=== PATIENT | male | born 2005 | race Caucasian/White ===

== ENCOUNTER 2025-03-16 12:09 | Emergency (ER) | payer BC, SELFPAY ==
[2025-03-16 12:18] VITALS: BP 140/82; PULSE 53; TEMP 36.8; O2SAT 98; BMI 23.1
--- NOTE | 2025-03-16 12:43 | ED.GENADUL1 ---
HPI HPI - General Adult General Chief complaint: Nausea/Vomiting/Diarrhea Stated complaint: VOMITING, NAUSEA, WEAKNESS Time Seen by Provider: 03/16/25 12:15 Source: patient Mode of arrival: walk-in Limitations: no limitations History of Present Illness HPI narrative: The patient is a 20-year-old male who presents to the emergency department today for evaluation of concerns for nausea and vomiting. He endorses since early this morning he has had multiple episodes of emesis. He states he was drinking last night and does endorse using marijuana products. He states he does have history of cannabinoid induced hyperemesis but reports his symptoms do not feel are similar to that as his symptoms were not alleviated by taking any warm showers. He states he does not feel hung over either . He denies any abdominal pain or diarrhea. No fever/chills, cough/cold symptoms, chest pain, shortness of breath, urinary symptoms, or back/flank pain. Related Data Previous Rx's ?Medication ?Instructions ?Recorded ondansetron 4 mg disintegrating 4 mg PO Q8H PRN nausea and 03/16/25 tablet vomiting 4 days #10 tabs Allergies Allergy/AdvReac Type Severity Reaction Status Date / Time No Known Drug Allergies Allergy Verified 03/16/25 12:18 Opioid HPI Opioid Management Most Recent Opioid Data: Last Pain Scale 7 Today, 12:18 Ur Phencyclidine Scrn, (NEGATIVE) Negative Today, 14:07 Review of Systems ROS Status of ROS 10 or more systems reviewed and unremarkable except as noted in history and below PFSH PFSH Social History Little interest or pleasure in doing things: not at all Feeling down, depressed, or hopeless: not at all Exam Narrative Exam Narrative: Constituational: Awake/ alert, no apparent distress, well hydrated HENMT: normocephalic, external ears normal, moist oral mucous membranes and oropharynx normal Eyes: EOMI and conjunctivae normal Neck: ROM intact Chest: inspection of chest normal Respiratory: Normal respiratory effort, clear to auscultation bilaterally Cardio: regular rate and regular rhythm GI: soft to palpation and non-tender Back: nontender MSK: ROM intact, +NVI Skin: no rashes or petechiae Neuro: no focal deficits Psych: mental status grossly normal Constitutional Vital Signs, click to edit/add: Last Vital Signs Temp 98.2 F 03/16/25 12:18 Pulse 53 L 03/16/25 12:18 Resp 16 03/16/25 12:18 BP 140/82 03/16/25 12:18 Pulse Ox 98 03/16/25 12:18 O2 Del Method Room Air 03/16/25 12:18 Course Vital Signs Vital signs: Vital Signs Temperature 98.2 F 03/16/25 12:18 Pulse Rate 53 L 03/16/25 12:18 Respiratory Rate 16 03/16/25 12:18 Blood Pressure 140/82 03/16/25 12:18 Pulse Oximetry 98 03/16/25 12:18 Oxygen Delivery Method Room Air 03/16/25 12:18 Temperature 98.2 F 03/16/25 12:18 Pulse Rate 53 L 03/16/25 12:18 Respiratory Rate 16 03/16/25 12:18 Blood Pressure 140/82 03/16/25 12:18 Pulse Oximetry 98 03/16/25 12:18 Oxygen Delivery Method Room Air 03/16/25 12:18 Medical Decision Making MDM Narrative Medical decision making narrative: The patient is a nontoxic well-appearing 20-year-old male who presented to the emergency department today for evaluation concerns for nausea and vomiting after he reportedly drinking last night and using marijuana product. Initial examination unremarkable. Historically he had endorsed multiple and frequent episodes of nausea with subsequent emesis after attempting any oral intake despite taking Zofran earlier this morning. No acute abdominal findings on exam. Vital signs are stable. Well-hydrated. Patient received supportive measures of IV fluids despite this per his request with Zofran. On reevaluation he is tolerating oral intake with no subsequent nausea or vomiting. Labs leukocytosis WBCs 14 otherwise no significant anemia or thrombocytopenia. Electrolytes including renal and hepatic function stable. Normal lipase. UA is negative for UTI. Urine drug screen is positive for cannabinoids. Patient was reevaluated multiple times while in the emergency department due to overall reporting improvement in condition with the above supportive measures. Clinical impression nausea and vomiting possibly 2/2 reported alcohol consumption last night vs cannabinoid induced hyperemesis vs viral illness. With the patient including recommendations for supportive care. Will discharge home with Zofran. Advised on follow-up with patient's primary care provider for reevaluation. Patient counseled for 5 minutes on marijuana use and alcohol use cessation. Discussed signs and symptoms of any worsening condition and when to consider reevaluation by the emergency department. Patient verbalized an understanding of this and is agreeable to plan to be discharged home. Medical Records Medical records reviewed: Yes I reviewed the patient's medical records Lab Data Lab results reviewed: Yes I reviewed the patient's lab results Labs: Lab Results 03/16/25 03/16/25 Range/Units 12:40 14:07 WBC 14.3 H (4.0-11.0) 10^3/uL RBC 4.72 (4.70-6.10) 10^6/uL Hgb 15.6 (14.0-18.0) g/dL Hct 44.2 (42.0-54.0) % MCV 93.6 (80.0-94.0) fL MCH 33.1 (25.9-34.0) pg MCHC 35.3 H (29.9-35.2) g/dL RDW 12.3 (11.0-15.0) % Plt Count 274 (150-450) 10^3/uL MPV 9.4 L (9.5-13.5) fL Neut % (Auto) 88.3 H (43.0-75.0) % Lymph % (Auto) 7.2 L (20.5-60.0) % [place] % (Auto) 4.1 (1.7-12.0) % Eos % (Auto) 0.0 L (0.9-7.0) % Baso % (Auto) 0.1 L (0.2-2.0) % Neut # (Auto) 12.6 H (1.4-6.5) 10^3/uL Lymph # (Auto) 1.0 L (1.2-3.8) 10^3/uL [place] # (Auto) 0.6 (0.3-0.8) 10^3/uL Eos # (Auto) 0.0 (0.0-0.7) 10^3/uL Baso # (Auto) 0.0 (0.0-0.1) 10^3/uL Abs Immat Gran (auto) 0.04 H (0.00-0.03) 10^3/uL Imm/Tot Granulo (auto) 0.3 (0.0-0.5) % Sodium 145 (136-145) mmol/L Potassium 4.3 (3.5-5.1) mmol/L Chloride 104 (98-107) mmol/L Carbon Dioxide 27.2 (21.0-32.0) mmol/L Anion Gap 18.1 BUN 20.0 H (7.0-18.0) mg/dL Creatinine 1.25 (0.70-1.30) mg/dL Est GFR ( Amer) >60 (>=60 mL/min/1.73m^2) Est GFR (Non-Af Amer) >60 (>=60 mL/min/1.73m^2) BUN/Creatinine Ratio 16.0 Glucose 107 H (74-106) mg/dL Calcium 10.1 (8.5-10.1) mg/dL Total Bilirubin 0.7 (0.2-1.0) mg/dL AST 40 H (15-37) U/L ALT 52 (16-63) U/L Alkaline Phosphatase 113 (46-116) U/L Total Protein 8.1 (6.4-8.2) g/dL Albumin 4.7 (3.4-5.0) g/dL Globulin 3.4 g/dL Albumin/Globulin Ratio 1.4 Lipase 18.0 (16.0-77.0) U/L Urine Color Yellow (YELLOW) Urine Clarity Clear (CLEAR) Urine pH 7.5 (5.0-9.0) Ur Specific [place] 1.015 (1.005-1.025) Urine Protein 30 A (NEG/TRACE) mg/dL Urine Glucose (UA) Negative (NEGATIVE) mg/dL Urine Ketones >=80 A (NEGATIVE) mg/dL Urine Occult Blood Negative (NEGATIVE) Urine Nitrite Negative (NEGATIVE) Urine Bilirubin Negative (NEGATIVE) Urine Urobilinogen 1.0 (0.2-1.0) EU/dL Ur Leukocyte Esterase Negative (NEGATIVE) Urine RBC None seen (0-2) #/HPF Urine WBC None seen (NONE SEEN) #/HPF Ur Squamous Epith Cells None seen (NONE/RARE) #/LPF Urine Crystals None seen (None Seen) #/HPF Urine Bacteria None seen (NONE SEEN) #/HPF Urine Casts None seen (NONE SEEN) #/LPF Urine Mucus Trace A (NONE SEEN) Urine Opiates Screen Negative (NEGATIVE) Ur Buprenorphine Scrn Negative (NEGATIVE) Ur Oxycodone Screen Negative (NEGATIVE) Urine Methadone Screen Negative (NEGATIVE) Ur Barbiturates Screen Negative (NEGATIVE) U Tricyclic Antidepress Negative (NEGATIVE) Ur Phencyclidine Scrn Negative (NEGATIVE) Ur Amphetamines Screen Negative (NEGATIVE) U Methamphetamines Scrn Negative (NEGATIVE) U Benzodiazepines Scrn Negative (NEGATIVE) Urine Cocaine Screen Negative (NEGATIVE) U Cannabinoids Screen Positive A (NEGATIVE) Discharge Plan Discharge Chief Complaint: Nausea/Vomiting/Diarrhea Clinical Impression: Nausea & vomiting Patient Disposition: Home, Self-Care Prescriptions / Home Meds: New ondansetron 4 mg tablet,disintegrating 4 mg PO Q8H PRN (Reason: nausea and vomiting) 4 Days Qty: 10 0RF Print Language: Frisian Instructions: Acute Nausea and Vomiting (DC) Additional Instructions: May take Zofran as needed for any nausea or vomiting. Stay hydrated and drink plenty of fluids. Recommend following a bland diet and advance this as tolerated. Follow-up with your primary care provider for reevaluation as discussed. Avoid any use of marijuana or alcohol as this may be contributing to your symptoms today. May return to the ER with any new or worsening symptoms/concerns.
[2025-03-16] MEDS: ONDANSETRON PF 4 MG/2 ML VIAL IV (12:49)
[2025-03-16] MEDS: 0.9 % SODIUM CHLORIDE 1,000 ML 1000 ML IV ×2 (12:49→13:41)
--- OUTSIDE RECORDS SUMMARY | 2025-03-16 12:50 | XMS_ITS | Clinical Summary ---
Author Organization [facility] Address [address] [place] [address] Care Team Providers Care Knobber Name Role Phone Dashawn Grijalva Primary Care Provider [phone] Allergies No known active allergies Medications ketoconazole (NIZOral) 2 % shampooIndicati ons:Tinea versicolor Lather on back and shoulders daily until clear and then 1-2 times a week for maintenance, leave on 5 min before rinsing Do not start before July 12, 2024. 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 Gained weight which is great since he has unintentional weight loss recently. Will hold off on GI eval for now. Moderate episode of recurrent major depressive d isorder 02/23/2023 Assessment & Plan (03/09/2023 5:34 PM EDT): Great response to mirtazipine, unintentional weight loss has also resolved. Notes he is 85-90% improved with MDD/PHILOMENA. He is very please. Other chronic pain 02/23/2023 Shoulder pain 02/23/2023 Encounters Date Type Department Care Team Description 02/20/2025 Telephone [facility] [address] [place] [address] Yamini Zavaleta MA from Last 3 Months Family History Medical History Relation Name Comments No Known Problems Brother Heart disease Father Hypertension Father Polycystic kidney disease Father Cancer Maternal Grandfather Heart disease Paternal Grandfather Hypertension Paternal Grandfather No Known Problems Sister Relation Name Status Comments Brother Alive Father Alive Maternal Grandfather Mother Alive Paternal Grandfather Sister Alive Social History Tobacco Use Types Packs/Day Years Used Date Smoking Tobacco: Every Day Cigarettes Passive Smoke Exposure: Past Smokeless Tobacco: Never Tobacco Cessation:Counseling Given: Yes Alcohol Use Standard Drinks/Week Comments Not Currently 0 (1 standard drink = 0.6 oz pur e alcohol) PHQ-2 Answer Date Recorded Patient Health Questionnaire-2 Score 0 03/09/2023 Sex and Gender Information Value Date Recorded Sex Assigned at Not on file Legal Sex Male 7:13 PM EDT Gender Identity Not on file Sexual Orientation Not on file Last Filed Vital Signs Vital Sign Reading Time Taken Comments Blood Pressure 128/78 03/09/2023 4:06 PM EDT Pulse 78 03/09/2023 4:06 PM EDT Temperature 36.7 C (98 F) 03/09/2023 4:06 PM EDT Respiratory Rate 18 03/09/2023 4:06 PM EDT Oxygen Saturation 98% 03/09/2023 4:06 PM EDT Inhaled Oxygen Concentration - - Weight 77.1 kg (170 lb) 03/09/2023 4:06 PM EDT Height 185.4 cm (6' 1 ) 03/09/2023 4:06 PM EDT Body Mass Index 22.43 03/09/2023 4:06 PM EDT Plan of Treatment Health Maintenance Due Date Last Done Comments Influenza Vaccine (Season Ended) 2025 Insurance BCBS Care Teams Knobber Relationship Specialty Start Date End Date Dashawn Grijalva DO PCP - General Family Medicine 03/09/23
--- OUTSIDE RECORDS SUMMARY | 2025-03-16 12:50 | XMS_ITS | Patient Health Record ---
Author Organization [facility] Address [address] [place] [address] Support Name Relationship Address Phone JONATHON NAVARRO Emergency Contact [address] [place] [address] JONATHON NAVARRO Guarantor Unknown [phone] Reason For Referral No Information Social History Tobacco Use: Social History Observation Description Date Details (start date - stop date) Unknown Tobacco Screen: Question Answer Notes Are you a: Uses tobacco in other forms Alcohol Screening: Question Answer Notes Did you have a drink contain ing alcohol in the past year? Yes How often did you have a dri nk containing alcohol in the past year? Monthly or less (1 point) Points 1 Interpretation Negative Depression Screening (PHQ-9): Question Answer Notes Little interest or pleasure in doing things Tigist ral days Feeling down, depressed, or hopeless Several day s Trouble falling or staying asleep, or sleeping t oo much More than half the days Feeling tired or having little energy Not at all Poor appetite or overeating Not at all Feeling bad about yourself-o r that you are a failure or have let yourself or your family down Not at all Trouble concentrating on thi ngs, such as reading the newspaper or watching television Not at all Moving or speaking so slowly that other people could have noticed. Or the opposite being so fidgety or restless that you have been moving around a lot more than usual Not at all Thoughts that you would be b todd off , or of hurting yourself in some way Not at all Total Score 4 Intepretation Minimal Depression Section Notes: Vapes on and off Problems Problem Type SNOMED Code ICD Code Onset Dates Problem Status W/U Status Risk Notes Problem Depression (792304861) Depression (F32.9) Active confirmed Problem 90895078 Situational anxiety (F41.8) Active confirmed Plan Of Treatment No Information Insurance Providers Payer Name Payer Address Payer Phone Subscriber Number Group Number Insured Name Patient Relationship to Insured Coverage Start Date Coverage End Date ANTHEM Primary [address] [place] [address] [phone] [id number] KENNETH NAVARRO Parent 2
--- OUTSIDE RECORDS SUMMARY | 2025-03-16 12:50 | XMS_ITS | Encounter Summary ---
Author Organization [facility] Address [address] [place] [address] Care Team Providers Care Clinical Pharmacy Coordinator Name Role Phone Rudi Dashawn Jones DO Primary Care Provider [phone] Dashawn Grijalva DO Unavailable [phone] Encounter Details Date Type Department Care Team (Late st Contact Info) Description 06/04/[address] [facility] [address] [place] [address] Mago Pisano, [facility] [address] [facility] [address] [place] [address] Social History Tobacco Use Types Packs/Day Years Used Date Smoking Tobacco: Every Day Cigarettes Passive Smoke Exposure: Past Smokeless Tobacco: Never Alcohol Use Standard Drinks/Week Comments Not Currently 0 (1 standard drink = 0.6 oz pur e alcohol) PHQ-2 Answer Date Recorded Patient Health Questionnaire-2 Score 0 03/09/2023 Sex and Gender Information Value Date Recorded Sex Assigned at Not on file Legal Sex Male 7:13 PM EDT Gender Identity Not on file Sexual Orientation Not on file documented as of this encounter Plan of Treatment Not on file documented as of this encounter Visit Diagnoses Not on filedocumented in this encounter Care Teams Clinical Pharmacy Coordinator Relationship Specialty Start Date End Date Dashawn Grijalva DO PCP - General Family Medicine 03/09/23 Dashawn Grijalva DO [address] [facility] [address] [place] [address] PCP - [employer] 05/10/23 documented as of this encounter
[2025-03-16 12:52] LABS: Basophils Percent Auto 0.1 % (0.2-2.0); Hematocrit 44.2 % (42.0-54.0); Hemoglobin 15.6 g/dL (14.0-18.0); Immature Granulocytes Abs Auto 0.04 10^3/uL (0.00-0.03); Immature Granulocytes Pct Auto 0.3 % (0.0-0.5); Lymphocytes Percent Auto 7.2 % (20.5-60.0); Mean Corpuscular HGB Conc 35.3 g/dL (29.9-35.2); Mean Corpuscular Hemoglobin 33.1 pg (25.9-34.0); Mean Corpuscular Volume 93.6 fL (80.0-94.0); Mean Platelet Volume 9.4 fL (9.5-13.5); Monocytes Absolute Auto 0.6 10^3/uL (0.3-0.8); Monocytes Percent Auto 4.1 % (1.7-12.0); Neutrophils Absolute Auto 12.6 10^3/uL (1.4-6.5); Neutrophils Percent Auto 88.3 % (43.0-75.0); Platelet Count 274 10^3/uL (150-450); Red Blood Count 4.72 10^6/uL (4.70-6.10); Red Cell Distribution Width 12.3 % (11.0-15.0); White Blood Count 14.3 10^3/uL (4.0-11.0)
[2025-03-16 13:11] LABS: Alanine Aminotransferase 52 U/L (16-63); Albumin Globulin Ratio 1.4; Albumin Level 4.7 g/dL (3.4-5.0); Alkaline Phosphatase 113 U/L (46-116); Anion Gap 18.1; Aspartate Amino Transferase 40 U/L (15-37); Bilirubin Total 0.7 mg/dL (0.2-1.0); Calcium 10.1 mg/dL (8.5-10.1); Carbon Dioxide 27.2 mmol/L (21.0-32.0); Chloride 104 mmol/L (98-107); Estimated GFR (African America >60 (>=60 mL/min/1.73m^2); Estimated GFR (Non-African Ame >60 (>=60 mL/min/1.73m^2); Globulin 3.4 g/dL; Glucose 107 mg/dL (74-106); Potassium 4.3 mmol/L (3.5-5.1); Sodium 145 mmol/L (136-145); Total Protein 8.1 g/dL (6.4-8.2)
[2025-03-16 14:13] LABS: Bilirubin Urine NEGATIVE (NEGATIVE); Blood Urine NEGATIVE (NEGATIVE); Clarity Urine CLEAR (CLEAR); Color Urine YELLOW (YELLOW); Glucose Urine UA NEGATIVE (NEGATIVE); Ketones Urine >=80 mg/dL (NEGATIVE); Leukocyte Esterase Urine NEGATIVE (NEGATIVE); Nitrite Urine NEGATIVE (NEGATIVE); Protein Urine 30 mg/dL (NEG/TRACE); Specific Gravity Urine 1.015 (1.005-1.025); pH Urine 7.5 (5.0-9.0)
[2025-03-16 14:15] LABS: Urine Microscopic Indicated YES
[2025-03-16 14:23] LABS: Bacteria Urine NONE SEEN #/HPF (NONE SEEN); Cast Seen? NONE SEEN #/LPF (NONE SEEN); Crystals Seen? None Seen #/HPF (None Seen); Mucus Urine TRACE (NONE SEEN); RBC Urine NONE SEEN #/HPF (0-2); Squamous Epithelial Cell Urine NONE SEEN #/LPF (NONE/RARE); WBC Urine NONE SEEN #/HPF (NONE SEEN)
[2025-03-16 14:24] LABS: Amphetamine Screen Urine NEGATIVE (NEGATIVE); Barbiturates Screen Urine NEGATIVE (NEGATIVE); Benzodiazepines Screen Urine NEGATIVE (NEGATIVE); Buprenorphine Screen Urine NEGATIVE (NEGATIVE); Cannabinoid Screen Urine POSITIVE (NEGATIVE); Cocaine Screen Urine NEGATIVE (NEGATIVE); Methadone Screen Urine NEGATIVE (NEGATIVE); Methamphetamines Screen Urine NEGATIVE (NEGATIVE); Opiate Screen Urine NEGATIVE (NEGATIVE); Oxycodone Screen Urine NEGATIVE (NEGATIVE); Phencyclidine Screen Urine NEGATIVE (NEGATIVE); Tricyclic Antidepressant Urine NEGATIVE (NEGATIVE)
[2025-03-16 14:44] VITALS: BP 122/78; PULSE 88; TEMP 36.8; O2SAT 99
== END 2025-03-16 14:45 | disposition home or self-care (01) ==
PROVIDERS: Nurse Practitioner; Emergency Provider Emergency Medicine
DX: R11.2 Nausea with vomiting, unspecified (principal)
CPT/HCPCS: 36415; 80053; 80307; 81001; 83690; 85025; 96361; 96374; 99285; J2405

== ENCOUNTER 2025-05-15 17:28 | Emergency (ER) | payer BC, SELFPAY ==
[2025-05-15 17:33] VITALS: BP 145/88; PULSE 69; TEMP 36.6; O2SAT 99; BMI 23.1
--- NOTE | 2025-05-15 17:44 | ED_ITS ---
HPI - Wound/Laceration General Chief Complaint: Wound/Laceration Stated Complaint: CUT LEFT HAND IN THE [place] WITH A KNIFE Time Seen by Provider: 05/15/25 17:35 Source: patient and family (brother) Mode of arrival: walk-in Limitations: no limitations History of Present Illness HPI narrative: 40-year-old male presents to the emergency department with brother with complaint of injury to his left little finger. Patient states he was walking on a trail, holding a knife and his phone, when the phone began to fall. He reached out to try and catch the phone and inadvertently cut his finger with the knife he was holding. Complains of pain, tenderness. Bleeding controlled. Unsure of last tetanus shot. Patient is right-handed. Denies any motor or sensory changes, paresthesias. Quality:?Penetrating trauma Severity:?Mild Timing:?As above, constant Context: Normal setting and activity? Modifying factors:?Pain worse with palpation Associated symptoms: as above Related Data Allergies Allergy/AdvReac Type Severity Reaction Status Date / Time No Known Drug Allergies Allergy Verified 05/15/25 17:36 Review of Systems ROS Narrative CONST: Denies diaphoresis, weakness MS: Denies arthralgias, myalgias SKIN:? +wound.? Denies swelling NEURO: Denies weakness, numbness, paresthesias PFSH PFSH Social History Little interest or pleasure in doing things: not at all Feeling down, depressed, or hopeless: not at all Exam Narrative Exam Narrative: Vital signs noted Nurses notes reviewed CONST: Nontoxic, well appearing, well nourished, in no distress.? No diaphoresis.?? HENT: normocephalic, atraumatic, CV: 2+ palpable left radial pulse MS: left little finger: patient has a V shaped ? No tenderness to the itzel holly of the finger.? No swelling, ecchymosis, discoloration, crepitus, deformity, instability, warmth.? ROM full flexion and extension.? Strength 5/5 NEURO: Sensory intact throughout and distal to the injury SKIN: + laceration PSYCHIATRIC: normal mood, affect Constitutional Vital Signs, click to edit/add: Last Vital Signs Temp 97.9 F 05/15/25 17:33 Pulse 75 05/15/25 18:55 Resp 18 05/15/25 18:55 BP 132/87 05/15/25 18:55 Pulse Ox 99 05/15/25 18:55 O2 Del Method Room Air 05/15/25 18:55 Course Vital Signs Vital signs: Vital Signs Temperature 97.9 F 05/15/25 17:33 Pulse Rate 69 05/15/25 17:33 Respiratory Rate 18 05/15/25 17:33 Blood Pressure 145/88 H 05/15/25 17:33 Pulse Oximetry 99 05/15/25 17:33 Oxygen Delivery Method Room Air 05/15/25 17:33 Temperature 97.9 F 05/15/25 17:33 Pulse Rate 75 05/15/25 18:55 Respiratory Rate 18 05/15/25 18:55 Blood Pressure 132/87 05/15/25 18:55 Pulse Oximetry 99 05/15/25 18:55 Oxygen Delivery Method Room Air 05/15/25 18:55 MDM - Wound/Laceration MDM Narrative Medical decision making narrative: This is a pleasant 20-year-old male who presents to the emergency department for evaluation of laceration to his left little finger On arrival, afebrile, vital signs stable. On exam, nontoxic, well appearing patient, in no apparent distress. He has speciate, roughly 2.5 cm laceration to the distal left little finger favoring ulnar side of the digit to the palmar aspect. There is some associated tenderness. Bleeding controlled. Range of motion full with flexion extension. Strength, neurovascularly intact. Left little finger x-ray imaging, per radiologist reveals no acute findings Wound repaired as noted in procedure note above without complication Favor laceration FB/deep structure involvement less likely based on exam and imaging History and Record Review Discussion with independent historian:brother Management Independent interpretation: Left little finger: No fracture, dislocation, foreign body noted. Re-Evaluation: Patient pain improved, wound repaired after treatment. Disposition ? The patient was discharged. Wound care instructions given both verbally and on discharge paperwork Patient advised Ibuprofen/Tylenol as needed for pain Plan: Patient will be discharged to home.? Condition at time of disposition: stable, improved.? Advised to follow up with referral provider, name and number placed on discharge paperwork. Advised to return for any worsening and/or development of new, concerning signs or symptoms PLEASE NOTE: Portions of the medical record may have been produced using electronic securities vault supervisor and may contain errors with respect to translation of words which may not have been identified prior to finalization of the chart. Imaging Data Left little finger xr: Radiologist's impression: ITS Impressions Finger X-Ray 05/15/25 17:44 IMPRESSION: Negative acute osseous abnormality. Soft tissue injury. No radio opaque foreign body Impression dictated by: Berny Coto M.D. 05/15/2025 6:53 PM Dictation Location: [place] [address] Electronically authenticated by: [id number] Y Date: 05/15/2025 18:53 Discharge Plan Discharge Chief Complaint: Wound/Laceration Clinical Impression: Finger pain, left Laceration of left little finger Qualifiers: Encounter type: initial encounter Damage to nail status: without damage Foreign body presence: without foreign body Qualified Code(s): S61.217A - Laceration without foreign body of left little finger without damage to nail, initial encounter Patient Disposition: Home, Self-Care Time of Disposition Decision: 18:42 Condition: Good Mode of Transportation: Private Vehicle Print Language: Spanish Additional Instructions: Laceration, Sutures ? You have been treated for a laceration (cut). ? Follow up with your doctor OR come back here OR go to the nearest Emergency Department to have your sutures (stitches) taken out. Sutures should be taken out in: 7-10 days. ? Use the following wound care instructions: Keep the wound clean and dry for the next 24 hours. You can wash the wound gentl y with soap and water. DO NOT allow your wound to soak in water (don?t do the dishes or go swimming, for example). You can shower, but do not rub your stitches too hard. Let the wound dry before putting another bandage on. Take off old dressings every day. Then put on a clean, dry dressing. If the bandage sticks to the wound, slightly moisten it with water. This way, it can come off more easily. You can wash the wound gently with soap and water. To help remove a scab, cleanse the area with a mixture of half hydrogen peroxide and half water. This will also help us to take out the sutures later. Allow the area to dry completely before putting on a new bandage. Unless you receive instructions not to do so, you can place a thin layer of antibiotic ointment over the wound. You can buy Polysporin?, Bacitracin?, or Neosporin? at the store. Neosporin? can sometimes cause irritation to your skin. If this happens, stop using it and switch to another topical (surface) antibiotic. If needed, put a clean, dry bandage over the wound to protect it. ? Keep the affected area elevated (lifted) for the next 24 hours. This will decrease swelling and pain. You may also want to put ice on the area. By a pplying ice to the affected area, swelling and pain can be reduced. Place some ice cubes in a re-sealable (Ziploc?) bag and add some water. Put a thin washcloth between the bag and the skin. Apply the ice bag to the area for at least 20 minutes. Do this at least 4 times per day. It is OK to use the ice more frequently and for longer periods of time. DO NOT APPLY ICE DIRECTLY TO THE SKIN! ? If you had a local anesthetic, it will wear off in about 2 hours. Until then, be careful not to hurt yourself because of having less feeling in the area. ? YOU SHOULD SEEK MEDICAL ATTENTION IMMEDIATELY, EITHER HERE OR AT THE NEAREST EMERGENCY DEPARTMENT, IF ANY OF THE FOLLOWING OCCURS: You see redness or swelling. There are red streaks going up from the injured area. The wound smells bad or has a lot of drainage. You have fever (temperature higher than 100.4?F / 38?C), chills, worse pain and / or swelling. ? ?BE SURE TO: Call the Doctor today (or tomorrow AM) for appointment. Call us or return for any questions\problems. Return to Emergency at anytime if you are worse. Have your prescription(s) filled right now. WOUND CARE: Have your sutures removed in 7-10 days. Keep wound clean, dry, and covered. Use peroxide once a day to help remove build up. Vitamin A&D ointment or Vitamin E lotion after sutures are removed.? Massage in. Referrals: Bereket Land MD [Physician, Orthopedics] - 1 week Discharge Date/Time: 05/15/25 18:55 Procedures ED Laceration Laceration Left little finger: Site: hand (left little finger) Side (if applicable): left Size (cm): 2.5 Description: irregular (v shaped) Depth: simple, single layer (into adipose tissue only) Anesthetic used: bupivacaine (0.25) Anesthesia technique: nerve block (digital. Injection to the base of the finger, incremental, no aspiration of blood) Amount (ml): 5 Pre-repair: wound explored, irrigated extensively and deep structures intact Skin layer closed with: other (Nylon) Size (cm): 6-0 Number of sutures: 8 Technique: simple, interrupted Additional comments: Bulky, bacitracin dressing applied by nursing
--- NOTE | 2025-05-15 17:44 | XR_ITS ---
The [address] [address] Patient Name: DIONICIO NAVARRO MRN: [id number] date: 2005 Sex: M Assigned Patient Location: ED.MAIN Current Patient Location: ED.MAIN Accession/Order Number: [id number] Exam Date: 05/15/2025 18:51 Report Date: 05/15/2025 18:53 At the request of: YURI SAEZ Procedure: XR finger LT min 2V 3 views left fifth digit INDICATION: Trauma, injury COMPARISON: None FINDINGS: Soft tissue injury identified. There is mild hyperextension of the DIP joint of uncertain significance, correlate with flexion/extension motion at this level. Otherwise no definite fractures or dislocation. No radiopaque foreign body identified. XR/XR finger LT min 2V IMPRESSION: Negative acute osseous abnormality. Soft tissue injury. No radio opaque foreign body Impression dictated by: Berny Coto M.D. 05/15/2025 6:53 PM Dictation Location: [place] [address] Electronically authenticated by: [id number] Y Date: 05/15/2025 18:53
--- OUTSIDE RECORDS SUMMARY | 2025-05-15 17:52 | XMS_ITS | Encounter Summary ---
Author Organization [facility] Address [address] [place] [address] Care Team Providers Care Gasket Winder Name Role Phone Dashawn Grijalva DO Primary Care Provider Encounter Details Date Type Department Care Team (Late st Contact Info) Description 03/22/2025 Abstract [facility] [address] [place] [address] Dashawn Grijalva DO [address] [place] [address] Social History Tobacco Use Types Packs/Day Years [...] on filedocumented in this encounter Care Teams Gasket Winder Relationship Specialty Start Date End Date Dashawn Grijalva DO PCP - General Family Medicine 03/09/23 documented as of this encounter
--- OUTSIDE RECORDS SUMMARY | 2025-05-15 17:52 | XMS_ITS | Encounter Summary ---
Author Organization [facility] Address [address] [place] [address] Care Team Providers Care Executive Office Manager Name Role Phone RudiAyoDashawn L DO Primary Care Provider [phone] Dashawn Grijalva DO Unavailable [phone] Encounter Details Date Type Department Care Team (Late st Contact Info) Description 06/04/2024 [facility] [address] [place] [address] Mago Pisano, [facility] [address] [place] [address] Social History Tobacco Use Types Packs/Day Years [...] on filedocumented in this encounter Care Teams Executive Office Manager Relationship Specialty Start Date End Date Dashawn Grijalva DO PCP - General Family Medicine 03/09/23 Dashawn Grijalva DO [address] [place] [address] PCP - U[employer]es [employer] 05/10/23 documented as of this encounter
--- OUTSIDE RECORDS SUMMARY | 2025-05-15 17:52 | XMS_ITS | Patient Health Record ---
Author Organization [facility] Address [address] [place] [address] Support Name Relationship Address Phone JONATHON NAVARRO Emergency Contact [address] [place] [address] JONATHON NAVARRO Guarantor Unknown [phone] Reason For Referral No Information Social History [...] Status W/U Status Risk Notes Problem Depression (447190048) Depression (F32.9) Active confirmed Problem Anxiety (46485677) Situational anxiety (F41.8) Active confirmed Plan Of Treatment No Information Insurance Providers Payer Name Payer Address Payer Phone Subscriber Number Group Number Insured Name Patient Relationship to Insured Coverage Start Date Coverage End Date [employer] Primary [address] [place] [address] [phone] [id number] KENNETH NAVARRO Parent 2
--- OUTSIDE RECORDS SUMMARY | 2025-05-15 17:52 | XMS_ITS | Clinical Summary ---
Author Organization [facility] Address [address] [place] [address] Care Team Providers Care Merchandising Assistant Name Role Phone Dashawn Grijalva Primary Care Provider Allergies No known active allergies Medications ketoconazole [...] Encounters Date Type Department Care Team Description 03/22/2025 Abstract [facility] [address] [place] [address] Dashawn Grijalva, 03/21/2025 Telephone [facility] [address] [place] [address] Yamini Zavaleta MA Error (VOID this visit) 02/20/2025 Telephone [facility] [address] [place] [address] Yamini Zavaleta MA from Last 3 [...] Due Date Last Done Comments Influenza Vaccine (#1) 2025 Insurance BS Care Teams Merchandising Assistant Relationship Specialty Start Date End Date Dashawn Grijalva DO PCP - General Family Medicine 03/09/23
[2025-05-15] MEDS: DIPHTH,PERTUSS(ACELL),TET VAC 0.5 ML SYRINGE IM (18:07)
[2025-05-15] MEDS: BUPIVACAINE HCL 0.25% PF 25 MG/10 ML VIAL INJ (18:08)
[2025-05-15] MEDS: BACITRACIN 0.9 GM PACKET 1 PACKET TOPICAL (18:50)
[2025-05-15 18:55] VITALS: BP 132/87; PULSE 75; O2SAT 99
== END 2025-05-15 18:55 | disposition home or self-care (01) ==
PROVIDERS: Emergency Provider Emergency Medicine; PCP Family Medicine
DX: S61.217A Laceration without foreign body of left little finger without damage to nail, initial encounter (principal); W26.0XXA Contact with knife, initial encounter; Z23 Encounter for immunization
CPT/HCPCS: 12001; 73140; 90471; 99283; J0665